=== PATIENT | female | born 1980 | race Caucasian/White ===

== ENCOUNTER → 2019-06-18 | Outpatient (CLI) | payer OTHER, BC | LOC: RAD 11:14 | DX: M25.521 Pain in right elbow (principal); W19.XXXA Unspecified fall, initial encounter; Y93.89 Activity, other specified; Y92.89 Other specified places as the place of occurrence of the external cause; Y99.8 Other external cause status ==

== ENCOUNTER → 2020-03-21 | Outpatient (CLI) | payer OTHER, BC | LOC: LAB 14:00 | PROVIDERS: ATTEND Nurse Practitioner | DX: R05 Cough (principal); Z20.822 Contact with and (suspected) exposure to COVID-19 ==

== ENCOUNTER → 2020-03-31 | Outpatient (CLI) | payer OTHER, BC | LOC: RAD 12:12 | PROVIDERS: ATTEND Nurse Practitioner | DX: R06.02 Shortness of breath (principal) ==

== ENCOUNTER → 2020-04-07 | Outpatient (CLI) | payer OTHER, BC | LOC: CAT 08:00 | PROVIDERS: ATTEND Nurse Practitioner | DX: J45.42 Moderate persistent asthma with status asthmaticus (principal); K76.0 Fatty (change of) liver, not elsewhere classified ==